=== PATIENT | male | born 1990 | race Caucasian/White ===

== ENCOUNTER 2024-08-25 03:33 | Emergency (ER) | payer MEDICARE, OTHER ==
[~2024-08-25] VITALS: Ht 177.8 cm; Wt 74.8 kg
[2024-08-25 08:04] VITALS: BP 119/79; TEMP 98; O2SAT 99
== END 2024-08-25 08:08 | disposition home or self-care (01) ==
LOC: ER 03:40
DX: F10.129 Alcohol abuse with intoxication, unspecified (principal); Z59.00 Homelessness unspecified; Y90.9 Presence of alcohol in blood, level not specified
CPT/HCPCS: 82962-TC